=== PATIENT | male | born 1990 | race Caucasian/White ===

== ENCOUNTER 2023-08-20 23:31 | Inpatient (IN) | payer MEDICAID ==
[~2023-08-20] VITALS: Ht 170.2 cm; Wt 77.1 kg
[~2023-08-20 23:31] MED LIST: MORPHINE 4 MG INJ. 4 MG/ML VIAL IVP ONE
[2023-08-20 23:38] VITALS: BP_SYST 147; PULSE 120; RESP 20; TEMP 98.2; O2SAT 99
[2023-08-20] MEDS ORDERED: NITROGLYCERIN 1 INCH (GM) OINT. TP ONE (23:45)
[2023-08-21 01:20] LABS: BASOPHILS % (AUTO) 0.3 % (0.0-2.0); EOSINOPHILS % (AUTO) 0.1 % (0.0-4.0); HEMOGLOBIN 17.4 g/dL (14.0-18.0); LYMPHOCYTES # (AUTO) 1.6 K/uL (1.0-5.5); LYMPHOCYTES % (AUTO) 12.2 % (20.5-51.5); MEAN CORPUSCULAR HEMOGLOBIN 30 pg (27-31); MEAN CORPUSCULAR HGB CONC 34 % (32-36); MEAN CORPUSCULAR VOLUME 88 fL (79.0-98.0); MONOCYTES # (AUTO) 0.8 K/uL (0.0-1.0); MONOCYTES % (AUTO) 6.4 % (1.7-9.3); NEUTROPHILS # (AUTO) 10.4 K/uL (1.8-7.7); PLATELET COUNT (AUTO) 312 K/uL (130-430); RED BLOOD CELL COUNT(AUTO) 5.89 MIL/uL (4.2-6.2); RED CELL DISTRIBUTION WIDTH 15.1 % (9.0-15.0); WHITE BLOOD COUNT (AUTO) 12.8 K/uL (4.8-10.8)
[2023-08-21 01:33] LABS: ANION GAP 12 (5-15); CALCIUM 9.9 mg/dL (8.4-11.0); CARBON DIOXIDE 29 mmol/L (23-29); CHLORIDE 97 mmol/L (98-107); CREATININE 1.19 mg/dL (0.55-1.30); GFR AFRICAN AMERICAN 92 mL/min (>90); GLUCOSE 150 mg/dL (74-106); SODIUM SERUM 138 mmol/L (136-145); UREA NITROGEN, BLOOD 17 mg/dL (8-21)
[2023-08-21 01:43] LABS: GFR NON AFRICAN-AMERICAN 76 mL/min (>90)
[2023-08-21 01:46] LABS: INR 4.2 (0.80-1.20); PROTHROMBIN TIME 40.4 SECS (9.5-12.5)
[2023-08-21 01:52] LABS: ALANINE AMINOTRANSFERASE 33 U/L (12-78); ALBUMIN 4.5 g/dL (3.4-4.8); ASPARTATE AMINOTRANSFERASE 33 U/L (10-37); BILIRUBIN,DIRECT 0.3 mg/dL (0.0-0.3); TOTAL BILIRUBIN 1.3 mg/dL (0.0-1.0); TOTAL PROTEIN, SERUM 8.2 g/dL (6.4-8.3)
[2023-08-21] MEDS ORDERED: MUPIROCIN 2% TOPICAL OINTMENT 22 GM NS PRN (05:45)
[2023-08-21] MEDS ORDERED: LORazepam 2 MG/ML VIAL IVP PRN (05:45)
[2023-08-21] MEDS ORDERED: ONDANSETRON HCL 4 MG/2 ML VIAL IVP PRN (05:45)
[2023-08-21] MEDS ORDERED: POTASSIUM CHLORIDE 20 MEQ TABLET.ER PO PRN (05:45)
[2023-08-21] MEDS ORDERED: DOCUSATE SODIUM 100 MG CAPSULE PO PRN (05:45)
[2023-08-21] MEDS ORDERED: ACETAMINOPHEN 325 MG TABLET PO PRN (05:45)
[2023-08-21] MEDS ORDERED: MAGNESIUM SULFATE 50 ML IV PRN (05:45)
[2023-08-21] MEDS ORDERED: MORPHINE 2 MG/ML INJ. SYRINGE IVP PRN ×2 (05:45)
[2023-08-21] MEDS ORDERED: WARF-52 PO (07:57)
[2023-08-21] MEDS ORDERED: FURO-150 PO (07:57)
[2023-08-21] MEDS ORDERED: METO-540 PO (07:57)
[2023-08-21 08:15] VITALS: BP_SYST 141; PULSE 84; RESP 18; TEMP 98.1; O2SAT 95
[2023-08-21] MEDS ORDERED: ASPIRIN 81 MG TAB.CHEW PO SCH (09:00)
== END 2023-08-21 08:15 | disposition left against medical advice (07) | DRG 190 ==
LOC: SED 23:31 → STU 08-21 05:30
PROVIDERS: ADMIT Family Medicine; ATTEND Family Medicine
DX: R07.9 Chest pain, unspecified (principal); I21.A1 Myocardial infarction type 2; I11.0 Hypertensive heart disease with heart failure; I50.9 Heart failure, unspecified; I24.9 Acute ischemic heart disease, unspecified; D72.829 Elevated white blood cell count, unspecified; E80.6 Other disorders of bilirubin metabolism; Z53.29 Procedure and treatment not carried out because of patient's decision for other reasons; Z79.01 Long term (current) use of anticoagulants; Z79.899 Other long term (current) drug therapy
CPT/HCPCS: 36415; 71045; 80048; 80076; 83880; 84484; 85025; 85610-TC; 85730-TC; 93005; 96374; 99285; G0378; J2270

== ENCOUNTER 2023-09-18 02:16 | Emergency (ER) | payer MEDICAID ==
[~2023-09-18] VITALS: Ht 170.2 cm; Wt 77.1 kg
[~2023-09-18 02:16] MED LIST changes: +FURO-150 PO; +METO-540 PO; -MORPHINE 4 MG INJ. 4 MG/ML VIAL IVP ONE; +WARF-52 PO
[2023-09-18 02:18] VITALS: BP_SYST 144; PULSE 95; RESP 17; TEMP 97.8; O2SAT 99
== END 2023-09-18 02:27 ==
LOC: SED 02:16
DX: Z02.89 Encounter for other administrative examinations (principal); I11.0 Hypertensive heart disease with heart failure; I50.9 Heart failure, unspecified; Z79.899 Other long term (current) drug therapy
CPT/HCPCS: 99283

== ENCOUNTER 2024-07-09 20:13 | Emergency (ER) | payer MEDICAID ==
[~2024-07-09] VITALS: Ht 170.2 cm; Wt 77.1 kg
[~2024-07-09 20:13] MED LIST changes: +METO-304 PO; -METO-540 PO
[2024-07-09 20:33] VITALS: BP_SYST 113; PULSE 81; RESP 20; TEMP 98; O2SAT 98
[2024-07-09] MEDS ORDERED: IBUP-1969 PO (21:20)
[2024-07-09] MEDS ORDERED: AUG875 PO (21:20)
[2024-07-09] MEDS: KETOROLAC TROMETHAMINE 30 MG VIAL IM ONE (21:30)
[2024-07-09] MEDS: AMOXICILLIN/POTASSIUM CLAV 875 MG TABLET PO ONE (21:31)
[2024-07-09 21:39] VITALS: BP_SYST 113; TEMP 98
[2024-07-09 21:40] VITALS: PULSE 80; RESP 16; O2SAT 96
== END 2024-07-09 21:40 | disposition home or self-care (01) ==
LOC: SED 20:13
DX: L03.211 Cellulitis of face (principal); I11.0 Hypertensive heart disease with heart failure; I50.9 Heart failure, unspecified; Z79.01 Long term (current) use of anticoagulants; Z79.899 Other long term (current) drug therapy
CPT/HCPCS: 99283; 96372; J1885

== ENCOUNTER 2024-07-13 17:38 | Emergency (ER) | payer MEDICAID ==
[~2024-07-13] VITALS: Ht 170.2 cm; Wt 77.1 kg
[2024-07-13 17:38] VITALS: BP_SYST 180; PULSE 158; RESP 20; TEMP 97.3; O2SAT 100
[~2024-07-13 17:38] MED LIST changes: +AUG875 PO; +IBUP-1969 PO
[2024-07-13] MEDS: LORazepam 1 MG TABLET PO ONE (18:43)
[2024-07-13] MEDS: LORazepam 2 MG/ML VIAL IVP ONE ×2 (20:43→22:11)
[2024-07-13] MEDS ORDERED: LORazepam 2 MG/ML VIAL IVP ONE (21:45)
[2024-07-13] MEDS: NACL 0.9% 1,000 ML IV ONE (22:15)
[2024-07-13 22:19] LABS: BASOPHILS % (AUTO) 0.3 % (0.0-2.0); EOSINOPHILS % (AUTO) 0.1 % (0.0-4.0); HEMATOCRIT 42.4 % (36-54); HEMOGLOBIN 14.3 g/dL (14.0-18.0); LYMPHOCYTES # (AUTO) 1.5 K/uL (1.0-5.5); LYMPHOCYTES % (AUTO) 10.6 % (20.5-51.5); MEAN CORPUSCULAR HEMOGLOBIN 27 pg (27-31); MEAN CORPUSCULAR HGB CONC 34 % (32-36); MEAN CORPUSCULAR VOLUME 80 fL (79.0-98.0); MONOCYTES # (AUTO) 0.8 K/uL (0.0-1.0); MONOCYTES % (AUTO) 5.7 % (1.7-9.3); NEUTROPHILS # (AUTO) 11.8 K/uL (1.8-7.7); NEUTROPHILS % (AUTO) 83.3 % (40.0-70.0); PLATELET COUNT (AUTO) 487 K/uL (130-430); RED BLOOD CELL COUNT(AUTO) 5.29 MIL/uL (4.2-6.2); RED CELL DISTRIBUTION WIDTH 14.2 % (9.0-15.0); WHITE BLOOD COUNT (AUTO) 14.2 K/uL (4.8-10.8)
[2024-07-13 23:10] LABS: CALCIUM 9.8 mg/dL (8.4-11.0); CREATININE 1.11 mg/dL (0.55-1.30); POTASSIUM 3.4 mmol/L (3.5-5.1)
[2024-07-13 23:45] VITALS: BP_SYST 172; PULSE 105; RESP 19; TEMP 98.3; O2SAT 96
== END 2024-07-13 23:45 | disposition home or self-care (01) ==
LOC: SED 17:38
DX: F15.129 Other stimulant abuse with intoxication, unspecified (principal); R00.2 Palpitations; I11.0 Hypertensive heart disease with heart failure; I50.9 Heart failure, unspecified; Z79.01 Long term (current) use of anticoagulants; Z79.899 Other long term (current) drug therapy
CPT/HCPCS: 99285; 96374; 71045; 96361; 80048; 85025; 36415; 93005; 96376; J2060; J7030